=== PATIENT | male | born 1950 | race Caucasian/White ===

== ENCOUNTER → 2019-01-03 07:29 | Outpatient (CLI) | payer OTHER, SELFPAY | PROVIDERS: Family Provider Family Medicine; PCP Family Medicine; Referring Provider Urology; Visit Provider Urology | DX: Z12.5 Encounter for screening for malignant neoplasm of prostate (principal) | CPT/HCPCS: 36415; 84153; G0103 ==

== ENCOUNTER → 2020-06-20 09:30 | Outpatient (CLI) | payer OTHER, SELFPAY ==
[2020-06-20 11:50] LABS: ALB/GLOB Ratio 1.1 RATIO (0.9-2.4); AST(SGOT) 20 U/L (15-37); Alanine Aminotransfer ALT/SGPT 31 U/L (16-61); Albumin, Serum 3.5 g/dL (3.2-5.0); Alkaline Phosphatase 78 U/L (45-117); Anion Gap 4 (5-15); BUN 18 mg/dL (7-18); BUN/Creat Ratio 22.3 RATIO (10-20); Calcium,Total 8.7 mg/dL (8.5-10.1); Chloride 107 mmol/L (98-107); Cholesterol 171 mg/dL (200); Creatinine, Serum 0.81 mg/dL (0.70-1.30); EST Glomerular Filtration Rate 100 mL/min (>60); Est Glom Filt Rate - Afr Amer 122 mL/min (>60); Globulin 3.3 g/dL (2.2-4.2); Glucose 81 mg/dL (74-106); High Density Lipoprotein 56 mg/dL; PSA,Total- Diagnostic 5.03 ng/mL (0.0-4.0); Potassium 4.1 mmol/L (3.5-5.1); Protein, Total 6.8 g/dL (6.4-8.2); Sodium Level 140 mmol/L (136-145); Thyroid Stim Hormone (TSH) 2.71 uIU/mL (0.358-3.74); Triglycerides 46 mg/dL; Very Low Density Lipoprotein 9 mg/dL (5-40)
== END ==
PROVIDERS: PCP Family Medicine; Referring Provider Family Medicine; Visit Provider Urology
DX: F32.9 Major depressive disorder, single episode, unspecified (principal); N40.0 Benign prostatic hyperplasia without lower urinary tract symptoms; R97.20 Elevated prostate specific antigen [PSA]; Z13.6 Encounter for screening for cardiovascular disorders
CPT/HCPCS: 36415; 80053; 80061; 84153; 84443

== ENCOUNTER 2021-09-17 17:45 | Observation (INO) | payer SELFPAY, OTHER ==
--- NOTE | 2021-09-16 09:19 | EKG12_ITS ---
Test Reason : PRE OP Blood Pressure : / mmHG Vent. Rate : 059 BPM Atrial Rate : 059 BPM P-R Int : 180 ms QRS Dur : 092 ms QT Int : 388 ms P-R-T Axes : 076 068 060 degrees QTc Int : 384 ms Sinus bradycardia Otherwise normal ECG Confirmed by SMOOTH AYALA, BUTCH ([id number]), mapping editor NOE GUAMAN ([id number]) on 09/17/2021 11:40:32 AM Referred By: Vernon Donovan Confirmed By:BUTCH REBOLLAR MD
[2021-09-16 09:42] LABS: Hematocrit 44.8 % (40-54); Hemoglobin 15.2 g/dL (13.0-16.5); Mean Corp Hgb Conc 33.9 g/dL (32-36); Mean Corpuscular Hgb 30.3 pg (27.0-32.0); Mean Corpuscular Volume 89.4 fL (80-94); Platelet Count 255 K/mm3 (150-450); RBC Distribution Width CV 12.4 % (11.6-14.6); RBC Distribution Width SD 40.5 fl (35.1-43.9); Red Blood Count 5.01 M/mm3 (4.6-6.2)
[2021-09-17] VITALS (12 sets, daily range): BP systolic 111–154; BP diastolic 69–93; PULSE 62–96; RESP 14–20; TEMP 36.3–36.9; O2SAT 93–100; BMI 30.4
[2021-09-17] MEDS: Lactated Ringers 1,000 ML 30 ML IV (10:08)
--- NOTE | 2021-09-17 11:40 | PROST_PTH ---
PATIENT: CHARAN ARZOLA LOC: MS3 U#:[id number] AGE/SX: 70/M ROOM: TX319 RE09/17/[address]: Dr. Vernon Donovan MD : [id number] BED: 1 DIS: 09/19/2021 SPEC #: [id number] RECD: 09/17/21 15:11 STATUS: TUAN GALLEGO #: [id number] CAL: 09/17/21 11:[address]: Vernon Donovan DEPT: SURGICAL PATHOLOGY RECD BY: Nanette Elena ENTERED: 09/18/21 09:00 SP TYPE: PROSTATE OTHR DR: Dr. Romelia Stewart, DO Tissues: Prostate, NOS Procedures: Surgery Specimen Level V HEADER OPERATION: Lap robotic simple prostatectomy PRE-OP DIAGNOSIS: BPH with obstruction, bladder stones TISSUE SUBMITTED: Prostate MICROSCOPIC DIAGNOSIS Prostate, simple prostatectomy: Benign prostatic hyperplasia. Focal chronic inflammation. SJ:ajith 09/19/2021 MICROSCOPIC DESCRIPTION Slides are reviewed. GROSS DESCRIPTION Received in fixative is one container labeled with the patient's name and designated prostate. The specimen consists of a simple prostatectomy specimen in multiple pieces weighing 42.5 gm and measuring in aggregate 8 x 7 x 3 cm. Sections do not reveal any mass lesion. Syruper sections are submitted in ten cassettes. / SJ:ajith 09/18/2021 TC:5 [facility]: [id number]
--- NOTE | 2021-09-17 12:05 | PCM.HP.STD ---
HPI - General HPI Narrative CHARAN ARZOLA, is a 70 M who presents for a simple prostatectomy PFSH Medical History (Updated 09/17/21 @ 12:[address] Vernon Donovan MD) Depression History of atrial fibrillation Loss of hearing Non-smoker Wears glasses Wears hearing aid Home Medications doxazosin [Cardura] 4 mg PO QHS 09/10/21 [History Last Taken Unknown] finasteride [Proscar] 5 mg PO DAILY 09/10/21 [History Last Taken Unknown] sertraline [Zoloft] 100 mg PO DAILY 09/10/21 [History Last Taken Unknown] vitamin B complex 1 tab PO DAILY 09/10/21 [History Last Taken Unknown] ciprofloxacin HCl [Cipro] 500 mg PO BID #14 tab 09/17/21 [Rx Last Taken Unknown] docusate sodium [Colace] 100 mg PO BID #20 cap 09/17/21 [Rx Last Taken Unknown] oxycodone-acetaminophen [Endocet] 1 tab PO Q6H PRN 7 Days #14 tab 09/17/21 [Rx Last Taken Unknown] Allergy/AdvReac Type Severity Reaction Status Date / Time No Known Allergies Allergy Verified 09/17/21 09:56 Surgical History (Updated 09/10/21 @ 11:10 by Carolann Barajas) Hx of hammer toe correction Hx of total knee replacement Social History Smoking Status: Never smoker Vital Signs Vital Signs Vital Signs: 09/17/21 10:00 Temperature 98.0 F Temperature Source Temporal Pulse Rate 62 Respiratory Rate 17 Respiratory Pattern Normal Blood Pressure 137/70 H Blood Pressure Mean 92 Blood Pressure Source Monitor Blood Pressure Position Semi-Fowlers Blood Pressure Location Right Arm Pulse Ox 98 Oxygen Delivery Method Room Air Weight Weight: 88 kg Body Mass Index (BMI) 30.4 Results Lab / Micro Data Result Diagrams: 09/16/21 09:04 Labs: Laboratory Results - last 24 hr 09/16/21 09:04: Blood Type A POSITIVE, Antibody Screen NEGATIVE Micro: Microbiology 09/16/21 08:51 Interface Orders SARS-CoV-2 Antigen (Rapid) - Final
--- NOTE | 2021-09-17 12:05 | PCM.DC ---
Discharge Instructions Diet Discharge Diet: Light diet - advance as tolerated and Soft diet Activity Discharge Activity: May Not Drive (while taking narcotic pain medications.) May resume sexual activity in: 6-8 weeks Lifting Restrictions: no lifting > 10 lbs Dressing / Incision Call your doctor if you observe: Fever of 101 or Higher Catheter: Low to leg bag and Low to large bag Drain: [place] Follow Up Care Please Follow Up With: Vernon Donovan MD When: Call [phone] for an appointment Test Results: Test results from this visit will be discussed in further detail at your follow-up appointment, if applicable. Discharge Plan Admission Primary Reason for Your Visit: PROSTATE SURGERY Attending Provider: Vernon Donovan Primary Care Provider: Romelia Stewart Discharge Orders/Prescriptions Prescriptions: New oxycodone-acetaminophen [Endocet] 5-325 mg tablet 1 tab PO Q6H PRN (Reason: pain) 7 Days Qty: 14 RF: 0 docusate sodium [Colace] 100 mg capsule 100 mg PO BID Qty: 20 RF: 0 ciprofloxacin HCl [Cipro] 500 mg tablet 500 mg PO BID Qty: 14 RF: 0 Continued sertraline [Zoloft] 100 mg tablet 100 mg PO DAILY RF: 0 vitamin B complex Tablet 1 tab PO DAILY RF: 0 doxazosin [Cardura] 4 mg Tablet 4 mg PO QHS RF: 0 finasteride [Proscar] 5 mg tablet 5 mg PO DAILY RF: 0 Referrals / Follow Up: Vernon Donovan MD [STAFF PHYSICIAN] - Romelia Stewart DO [Primary Care Provider] - Disposition Disposition (needs filled in before D/C Order can be placed): Home, Self Care
[2021-09-17] MEDS: Cefazolin 2 GM in 0.9% Normal Saline 100 ML IV (12:10)
[2021-09-17] MEDS: Bupivacaine Mpf 0.5% 30 ML VIAL (14:50)
--- NOTE | 2021-09-17 15:00 | OP.PCM_ITS ---
Report of Operation Date of Procedure: 09/17/21 Pre-Operative Diagnosis: BPH with obstruction and small bladder stone Post-Operative Diagnosis: Same Surgery/Procedure Performed:: Robotic assisted simple prostatectomy, removal of small bladder stone Description of Surgical Findings:: Indication this is a 70-year-old male has a symptomatic urinary symptoms with difficulty emptying his bladder he is got a bladder stone is got a very large prostate today we can proceed with a robotic simple prostatectomy and removal of bladder stone. Patient was taken back to the operating room at the [facility]ion of general anesthesia he was placed in dorsolithotomy position. The penis testicles and lower abdomen was shaved prepped and draped in usual fashion made a small incision in the umbilicus put a camera port in the umbilicus right arm port left arm port and the second left arm port in the air suction port we then reflected the colon off the lateral wall I then identified the midline of the bladder the bladder was filled with 250 cc of sterile water and then we made an incision in the midline of the bladder we opened up the clamshell open the bladder using a Gibran needle to hold it open then identify the obstructive prostate and then I then enucleated the large prostate using scissors and cauterization to enucleate the prostatic tissue from the prostate and doing this we removed the adenomas on both the right side and the left side came down to the catheter Through the urethra and then after removing the adenomas we did obtain hemostasis used FloSeal in the prostate and put a catheter 20 Mont[place] into the bladder and then we reapproximated the mucosa advanced it down to the urethra with a V-Loc stitches and then there was a small stone in the bladder this was removed as a very small 1 cm stone. Then at this point we closed the midline incision of the bladder with a running stitch and then we extracted the prostate through the air seal port and then closed all the ports and the patient anesthetic was reversed taken back to the PACU in good condition he underwent a simple prostatectomy with a laparoscopic approach with robotic assistance. Catheter was in place draining clear urine. Surgeon: GEE Type of Anesthesia: General Admit VTE Documentation VTE Present on Admission: No VTE Mechan Device Prophylaxis: SCD's VTE Pharm Prophylaxis ordered?: No
[2021-09-17] MEDS: Ketorolac 15 MG/ML Vial IV (15:36)
[2021-09-17] MEDS: 0.9% Normal Saline 1,000 ML 125 ML IV ×2 (16:14→19:55)
[2021-09-17] MEDS: Acetaminophen 500 MG Tablet PO (21:20)
[2021-09-17] MEDS: Doxazosin 4 MG Tablet PO (21:21)
[2021-09-17] MEDS: Sertraline 100 MG Tablet PO (21:22)
[2021-09-17] MEDS: Ciprofloxacin 400 MG/200 ML BAG 200 MG IV (21:27)
[2021-09-18 01:29] VITALS: BP 113/72; PULSE 86; RESP 16; TEMP 36.5; O2SAT 97
[2021-09-18] MEDS: Acetaminophen 500 MG Tablet PO ×3 (02:17→22:01)
[2021-09-18] MEDS: 0.9% Normal Saline 1,000 ML 125 ML IV ×3 (04:45→22:00)
[2021-09-18 05:06] VITALS: BP 105/62; PULSE 88; RESP 16; TEMP 36.6; O2SAT 95
--- NOTE | 2021-09-18 07:06 | PCM.PN.GU ---
Subjective Subjective Status post simple prostatectomy yesterday urine is now crystal-clear he is doing well pain is under control advance to regular diet ambulate continue with fluids anticipate discharge home tomorrow with the Low. Objective Data Objective Data Vital Signs: Vital Signs Temp Pulse Resp BP Pulse Ox 97.8 F 88 16 105/62 95 09/18/21 05:06 09/18/21 05:06 09/18/21 05:06 09/18/21 05:06 09/18/21 05:06 Oxygen Delivery Method Room Air Weight: 88 kg Body Mass Index (BMI) 30.4 Intake & Output: Intake and Output for Last 24 Hours 09/16/21 09/17/21 09/18/21 23:59 23:59 23:59 Intake Total 3962.09 / 3962.09 787.5 / 787.5 Output Total 1460 / 1460 800 / 800 Balance 2502.09 / 2502.09 -12.5 / -12.5 Lab / Micro Data Result Diagrams: 09/16/21 09:04 Micro: Microbiology 09/16/21 08:51 Interface Orders SARS-CoV-2 Antigen (Rapid) - Final
[2021-09-18 09:25] VITALS: BP 117/55; PULSE 88; RESP 16; TEMP 36.9; O2SAT 98
[2021-09-18] MEDS: Finasteride 5 MG Tablet PO (09:49)
[2021-09-18] MEDS: Vitamin B Comp W-C Capsule 1 CAP PO (09:49)
[2021-09-18] MEDS: Ciprofloxacin 400 MG/200 ML BAG 200 MG IV ×2 (09:49→22:02)
[2021-09-18] MEDS: Sertraline 100 MG Tablet PO (10:59)
[2021-09-18 14:10] VITALS: BP 130/67; PULSE 81; RESP 14; TEMP 37.3; O2SAT 95
[2021-09-18 16:20] VITALS: BP 130/76; PULSE 76; RESP 16; TEMP 36.8; O2SAT 94
[2021-09-18] MEDS: Doxazosin 4 MG Tablet PO (22:02)
[2021-09-18 22:06] VITALS: BP 130/74; PULSE 71; RESP 16; TEMP 36.9; O2SAT 94
[2021-09-19] MEDS: Ketorolac 15 MG/ML Vial IV (03:14)
[2021-09-19] MEDS: 0.9% Saline Lock 10 ML Syringe IV (03:14)
[2021-09-19 03:26] VITALS: BP 135/78; PULSE 72; RESP 16; TEMP 36.6; O2SAT 94
--- NOTE | 2021-09-19 07:12 | PCM.PN.GU ---
Subjective Subjective Urine is clear and is doing well he can go home today with a catheter. Objective Data Objective Data Vital Signs: Vital Signs Temp Pulse Resp BP Pulse Ox 98 F 72 16 135/78 H 94 09/19/21 03:26 09/19/21 03:26 09/19/21 03:26 09/19/21 03:26 09/19/21 03:26 Oxygen Delivery Method Room Air Weight: 88 kg Body Mass Index (BMI) 30.4 Intake & Output: Intake and Output for Last 24 Hours 09/17/21 09/18/21 09/19/21 23:59 23:59 23:59 Intake Total 3962.09 / 3962.09 4577.08 / 4577.08 Output Total 1460 / 1460 4550 / 5550 1000 / 1000 Balance 2502.09 / 2502.09 27.08 / -972.92 -1000 / -1000 Lab / Micro Data Result Diagrams: 09/16/21 09:04 Micro: Microbiology 09/16/21 08:51 Interface Orders SARS-CoV-2 Antigen (Rapid) - Final
[2021-09-19] MEDS: 0.9% Normal Saline 1,000 ML 125 ML IV (07:17)
[2021-09-19 08:45] VITALS: BP 137/64; PULSE 71; RESP 16; TEMP 36.7; O2SAT 94
[2021-09-19] MEDS: Vitamin B Comp W-C Capsule 1 CAP PO (08:59)
[2021-09-19] MEDS: Finasteride 5 MG Tablet PO (08:59)
[2021-09-19] MEDS: Sertraline 100 MG Tablet PO (08:59)
[2021-09-19] MEDS: Acetaminophen 500 MG Tablet PO (09:02)
[2021-09-19] MEDS: Ciprofloxacin 400 MG/200 ML BAG 200 MG IV (09:03)
[2021-09-19 10:10] VITALS: BP 137/61; PULSE 84; RESP 14; TEMP 36.9; O2SAT 97
== END 2021-09-19 10:25 | disposition home or self-care (01) ==
LOC: SDC 18:09 → MS3 09-18 08:31
PROVIDERS: Anesthesiology; Admitting Provider Urology; PCP Family Medicine; Referring Provider Urology; Visit Provider Urology
PROC: 0VT04ZZ Resection of Prostate, Percutaneous Endoscopic Approach (ICD-10-PCS; CPT 55866; principal; 2021-09-17 11:20)
DX: N40.1 Benign prostatic hyperplasia with lower urinary tract symptoms (principal); I48.91 Unspecified atrial fibrillation; N13.8 Other obstructive and reflux uropathy; F32.A Depression, unspecified; Z79.899 Other long term (current) drug therapy
CPT/HCPCS: 55866; 00865; 36415; 82360; 85027; 86850; 86900; 86901; 87811; 88307; 88309; 93005; 96361; 96365; 96366; 96375; 99218; C9803; J7030; J7120; A4216; G0378; J0744; J2405

== ENCOUNTER 2021-09-28 14:36 | Emergency (ER) | payer OTHER, SELFPAY ==
[2021-09-28 14:37] VITALS: BP 144/93; PULSE 80; RESP 16; TEMP 36.6; O2SAT 94
--- NOTE | 2021-09-28 15:10 | EDS_ITS ---
HPI History of Present Illness Chief Complaint: Low C/O Informant: patient Narrative Narrative: 70-year-old male status post prostate surgery on 17 September presents to the emergency room with Low catheter malfunction. Reportedly the patient had prostatectomy with bladder stone removal. Patient states that he had been doing well this morning he noticed that his catheter was leaking. And he had blood in the bag. He feels that he is filling up with urine and then he leaks around the catheter. He states that his urine had been clear of blood until this morning. He is scheduled to see Dr. Donovan tomorrow. [facility] Medical History Depression History of atrial fibrillation Loss of hearing Non-smoker Wears glasses Wears hearing aid Home Medications doxazosin [Cardura] 4 mg PO QHS 09/10/21 [History Last Taken Unknown] finasteride [Proscar] 5 mg PO DAILY 09/10/21 [History Last Taken Unknown] sertraline [Zoloft] 100 mg PO DAILY 09/10/21 [History Last Taken Unknown] vitamin B complex 1 tab PO DAILY 09/10/21 [History Last Taken Unknown] ciprofloxacin HCl [Cipro] 500 mg PO BID #14 tab 09/17/21 [Rx Last Taken Unknown] docusate sodium [Colace] 100 mg PO BID #20 cap 09/17/21 [Rx Last Taken Unknown] oxycodone-acetaminophen [Endocet] 1 tab PO Q6H PRN 7 Days #14 tab 09/17/21 [Rx Last Taken Unknown] Allergy/AdvReac Type Severity Reaction Status Date / Time No Known Allergies Allergy Verified 09/28/21 14:39 Surgical History Hx of hammer toe correction Hx of total knee replacement Social History Smoking Status: Never smoker ROS ROS ED Constitutional Constitutional ED: Denies chills or weight loss Eyes Eyes: Denies change in vision or diplopia ENT ENT ED: Denies ear pain, rhinorrhea or sore throat Cardiovascular Cardiovascular: Denies chest pain, orthopnea, palpitations or racing heartbeat Respiratory/Chest Respiratory/Chest: Denies cough, dyspnea or orthopnea Gastrointestinal Gastrointestinal: Denies abdominal pain, diarrhea, nausea or vomiting Genitourinary Genitourinary ED: Reports other Details: See history of present illness ; Denies dysuria, hematuria or urinary frequency Musculoskeletal Musculoskeletal: Denies arthralgias or myalgias Integumentary Denies abscess or rash Neurologic Neurologic: Denies headache(s) or weakness Psychiatric Psychiatric: Denies anxiety, depression, suicidal ideation or suicidal thoughts Endocrine Endocrinology: Denies polydipsia, polyphagia or polyuria Allergic/Immunologic Allergic/Immunologic ED: Denies mouth swelling, tongue swelling or urticaria EXAM Physical Exam Const Vital Signs: 09/28/21 14:37 Temperature 97.8 F Temperature Source Temporal Pulse Rate 80 Respiratory Rate 16 Blood Pressure 144/93 H Blood Pressure Mean 110 Pulse Ox 94 Oxygen Delivery Method Room Air Positive well nourished and well developed General Appearance ED: well developed HEENT Reports normocephalic, head/scalp atraumatic and moist mucous membranes Eyes PERRL and EOMs intact bilaterally Neck no lymphadenopathy, supple and no JVD Resp normal respiratory effort and clear to auscultation bilaterally Cardio regular rate, regular rhythm and no murmurs GI normal to inspection, nondistended, normoactive bowel sounds and non-tender Palpation: soft Back/Spine no CVA tenderness and normal ROM Extremity normal to inspection General Extremety ED: Negative for edema General Extremity: Negative for edema Neuro oriented x3 and CN's II-XII intact bilaterally Sensorium / Orientation: alert Motor Exam: strength 5/5 throughout Psych mental status grossly normal Mood & Affect: Negative for depressed or tearful Skin no rashes or lesions noted and no wounds MDM MDM MDM Narrative Medical decision making narrative: Low catheter was irrigated and some clots were removed. After irrigation irrigation fluid was clear. I spoke with Dr. Donovan we will go ahead and remove the catheter and see if he can urinate here tonight. The patient was able to urinate. He feels comfortable going home without a catheter. He was advised that if he is unable to urinate tonight he will need to return for catheter placement. He is comfortable with this plan. He feels that he is in control of his stream. If he can he will be discharged home to follow-up tomorrow. Discharge Plan Triage Chief Complaint: Low C/O ED Provider: Trevor Jeffers Dx/Rx/DC Orders Clinical Impression: Malfunction of Low catheter, Hematuria Instructions: Indwelling Urinary Catheter Dc Prescriptions: No Action sertraline [Zoloft] 100 mg tablet 100 mg PO DAILY RF: 0 vitamin B complex Tablet 1 tab PO DAILY RF: 0 doxazosin [Cardura] 4 mg Tablet 4 mg PO QHS RF: 0 finasteride [Proscar] 5 mg tablet 5 mg PO DAILY RF: 0 oxycodone-acetaminophen [Endocet] 5-325 mg tablet 1 tab PO Q6H PRN (Reason: pain) 7 Days Qty: 14 RF: 0 docusate sodium [Colace] 100 mg capsule 100 mg PO BID Qty: 20 RF: 0 ciprofloxacin HCl [Cipro] 500 mg tablet 500 mg PO BID Qty: 14 RF: 0 Primary Care Provider: Romelia Stewart Referrals: Vernon Donovan MD [STAFF PHYSICIAN] - Keep Tracy appointment Romelia Stewart DO [Primary Care Provider] - Disposition Disposition: Home, Self Care
--- NOTE | 2021-09-28 16:23 | NURSING ---
tang d/c per dr. cisneros. 10cc removed from balloon. tolerated well. pt urinates 200cc
== END 2021-09-28 16:24 | disposition home or self-care (01) ==
PROVIDERS: Emergency Provider Emergency Medicine; PCP Family Medicine; Visit Provider Emergency Medicine
DX: T83.091A Other mechanical complication of indwelling urethral catheter, initial encounter (principal); X58.XXXA Exposure to other specified factors, initial encounter; R31.9 Hematuria, unspecified; F32.A Depression, unspecified; Z90.79 Acquired absence of other genital organ(s); Z79.899 Other long term (current) drug therapy
CPT/HCPCS: 99282; A4216

== ENCOUNTER → 2022-11-10 | Outpatient (CLI) | payer SELFPAY ==
[2022-11-10 10:23] LABS: PSA,Total- Diagnostic 1.86 ng/mL (0.0-4.0)
== END | disposition home or self-care (01) ==
PROVIDERS: PCP Family Medicine; Referring Provider Urology; Visit Provider Urology
DX: R97.20 Elevated prostate specific antigen [PSA] (principal)
CPT/HCPCS: 36415; 84153

== ENCOUNTER → 2023-11-16 | Outpatient (CLI) | payer OTHER, SELFPAY ==
[2023-11-16 10:56] LABS: PSA,Total- Diagnostic 2.19 ng/mL (0.0-4.0)
== END | disposition home or self-care (01) ==
LOC: LAB 09:28
PROVIDERS: PCP Family Medicine; Referring Provider Urology; Visit Provider Urology
DX: R97.20 Elevated prostate specific antigen [PSA] (principal)
CPT/HCPCS: 36415; 84153